=== PATIENT | female | born 1970 | race Caucasian/White ===

== ENCOUNTER 2017-05-04 16:52 | Emergency (ER) | payer BC ==
[~2017-05-04] VITALS: Ht 163.8 cm; Wt 67.4 kg
[2017-05-04 18:08] LABS: BASOPHILS # (AUTO) 0.02 x10^3/uL (0-0.1); BASOPHILS % (AUTO) 0 % (0-1); EOSINOPHILS # (AUTO) 0.06 x10^3/uL (0-0.4); EOSINOPHILS % (AUTO) 1 % (1-7); LYMPHOCYTES # (AUTO) 1.12 x10^3/uL (1-3.4); LYMPHOCYTES % (AUTO) 15 % (22-44); MD NO; MEAN CORPUSCULAR HEMOGLOBIN 25.1 pg (27.0-34.8); MEAN CORPUSCULAR HGB CONC 31.7 g/dL (32.4-35.8); MEAN CORPUSCULAR VOLUME 79.3 fL (80-100); MEAN PLATELET VOLUME 10.6 fL (7.4-10.4); MONOCYTES # (AUTO) 0.81 x10^3/uL (0.2-0.8); MONOCYTES % (AUTO) 11 % (2-9); NEUTROPHILS # (AUTO) 5.52 x10^3/uL (1.8-6.8); NEUTROPHILS % (AUTO) 73 % (42-75); PLATELET COUNT 223 x10^3/uL (130-400); RED BLOOD COUNT 4.47 x10^6/uL (3.82-5.3); RED CELL DISTRIBUTION WIDTH 16.7 % (9.6-15.2)
[2017-05-04 18:15] LABS: INTERNATIONAL NORMALIZED RATIO 1.03 (0.93-1.1); PROTHROMBIN TIME 10.7 Seconds (9.6-11.5)
[2017-05-04 18:18] LABS: ALBUMIN 3.8 g/dL (3.4-5.0); ANION GAP 7 mmol/L (5-15); CALCIUM 9.3 mg/dL (8.5-10.1); CHLORIDE 107 mmol/L (98-107); CREATININE 0.83 mg/dL (0.55-1.02)
[2017-05-04] MEDS ORDERED: PLEASE ENTER ALLERGIES MC SCH (18:30)
[2017-05-04] MEDS ORDERED: RIVAROXABAN 15 MG TABLET PO ONE (18:30)
[2017-05-04] MEDS ORDERED: SERT25TA3 PO (18:59)
[2017-05-04 19:44] VITALS: BP 127/59
== END 2017-05-04 19:46 | disposition home or self-care (01) ==
LOC: ED 19:04
DX: I82.412 Acute embolism and thrombosis of left femoral vein (principal); I82.432 Acute embolism and thrombosis of left popliteal vein; Z79.01 Long term (current) use of anticoagulants; Z86.718 Personal history of other venous thrombosis and embolism
CPT/HCPCS: 36415; 80048; 82040; 85025; 85610; 99285

== ENCOUNTER 2017-06-16 11:58 | Observation (INO) | payer BC ==
[~2017-06-16] VITALS: Ht 165.1 cm; Wt 67.1 kg
[~2017-06-16 11:58] MED LIST: CEFAZOLIN 1,000 MG ONE; DEXAMETHASONE 4 MG/ML, 1ML ONE; MEDROXYPROGESTERONE ACETATE 5 MG TABLET PO ONE; ONDANSETRON 2MG/ML, 2ML ONE; PROPOFOL 10 MG/ML, 20ML ONE; SERT25TA3 PO
[2017-06-16 13:03] VITALS: BP 116/73
[2017-06-16 13:16] LABS: BASOPHILS # (AUTO) 0.04 x10^3/uL (0-0.1); BASOPHILS % (AUTO) 1 % (0-1); EOSINOPHILS # (AUTO) 0.04 x10^3/uL (0-0.4); EOSINOPHILS % (AUTO) 1 % (1-7); LYMPHOCYTES # (AUTO) 1.14 x10^3/uL (1-3.4); LYMPHOCYTES % (AUTO) 23 % (22-44); MD NO; MEAN CORPUSCULAR HEMOGLOBIN 25.5 pg (27.0-34.8); MEAN CORPUSCULAR HGB CONC 32.2 g/dL (32.4-35.8); MEAN CORPUSCULAR VOLUME 79.1 fL (80-100); MEAN PLATELET VOLUME 10.4 fL (7.4-10.4); MONOCYTES # (AUTO) 0.36 x10^3/uL (0.2-0.8); MONOCYTES % (AUTO) 7 % (2-9); NEUTROPHILS # (AUTO) 3.35 x10^3/uL (1.8-6.8); NEUTROPHILS % (AUTO) 68 % (42-75); PLATELET COUNT 225 x10^3/uL (130-400); RED BLOOD COUNT 3.41 x10^6/uL (3.82-5.3); RED CELL DISTRIBUTION WIDTH 20.6 % (9.6-15.2)
[2017-06-16] MEDS ORDERED: iron PO (13:21)
[2017-06-16] MEDS ORDERED: RIVA20TA PO (13:21)
[2017-06-16 13:29] LABS: ALBUMIN 3.7 g/dL (3.4-5.0); ANION GAP 8 mmol/L (5-15); CHLORIDE 109 mmol/L (98-107)
[2017-06-16 13:36] LABS: INTERNATIONAL NORMALIZED RATIO 1.09 (0.93-1.1); PROTHROMBIN TIME 11.2 Seconds (9.6-11.5)
[2017-06-16] MEDS ORDERED: MEDROXYPROGESTERONE ACETATE 2.5 MG TABLET PO ONE (14:00)
[2017-06-16] MEDS ORDERED: MIDAZOLAM 1 MG/ML, 2ML ONE (16:02)
[2017-06-16] MEDS ORDERED: FENTANYL PF 100 MCG/2ML ONE (16:02)
[2017-06-16] MEDS ORDERED: SILVER NITRATE STICK TP ONE (16:18)
[2017-06-16] MEDS ORDERED: ACETAMINOPHEN 325 MG TABLET PO PRN (16:30)
[2017-06-16] MEDS ORDERED: OXYcodone 5 MG/5 ML ORAL.SOL UDC PO PRN (16:30)
[2017-06-16] MEDS ORDERED: FENTANYL PF 100 MCG/2ML IV PRN (16:30)
[2017-06-16] MEDS ORDERED: HYDROmorphone 1 MG/ML, 1ML IV PRN (16:30)
[2017-06-16] MEDS ORDERED: ONDANSETRON 2MG/ML, 2ML IVPush PRN (16:30)
[2017-06-16] MEDS ORDERED: ACETAMINOPHEN 325 MG TABLET ONE (16:41)
== END 2017-06-16 18:25 | disposition home or self-care (01) ==
LOC: ED 13:16 → EDIP 15:12 → UNDOADMIN 15:12 → EDIP 16:00 → UNDODISIN 06-17 17:20
PROVIDERS: ADMIT Obstetrics & Gynecology; ATTEND Obstetrics & Gynecology
DX: N92.0 Excessive and frequent menstruation with regular cycle (principal); D64.9 Anemia, unspecified; N85.8 Other specified noninflammatory disorders of uterus; D25.9 Leiomyoma of uterus, unspecified; Z79.01 Long term (current) use of anticoagulants; Z98.890 Other specified postprocedural states; I82.409 Acute embolism and thrombosis of unspecified deep veins of unspecified lower extremity
CPT/HCPCS: 36415; 58120; 76830; 80048; 82040; 84703; 85025; 85610; 85730; 86850; 86900; 88305; 99285; G0378; J0690; J1100; J2250; J2405; J2704; J3010

== ENCOUNTER 2017-07-02 08:36 | Day surgery (SDC) | payer BC ==
[~2017-07-02] VITALS: Ht 165.1 cm; Wt 66.0 kg
[~2017-07-02 08:36] MED LIST changes: -CEFAZOLIN 1,000 MG ONE; -DEXAMETHASONE 4 MG/ML, 1ML ONE; +IRON1TAB2 PO; -MEDROXYPROGESTERONE ACETATE 5 MG TABLET PO ONE; +NORE5TAB PO; -ONDANSETRON 2MG/ML, 2ML ONE; -PROPOFOL 10 MG/ML, 20ML ONE; +RIVA20TA PO; +SERT50TA5 PO; +iron PO
[2017-07-02] MEDS ORDERED: LACTATED RINGERS 1,000 ML IV SCH (08:52)
[2017-07-02 09:39] VITALS: BP 114/71
[2017-07-02] MEDS ORDERED: MIDAZOLAM 1 MG/ML, 2ML ONE (10:02)
[2017-07-02] MEDS ORDERED: FENTANYL PF 100 MCG/2ML ONE (10:02)
[2017-07-02] MEDS ORDERED: LIDOCAINE-MPF 2% ,5ML ONE (10:03)
[2017-07-02] MEDS ORDERED: ONDANSETRON 2MG/ML, 2ML ONE ×2 (10:03)
[2017-07-02] MEDS ORDERED: PROPOFOL 10 MG/ML, 20ML ONE (10:03)
[2017-07-02] MEDS ORDERED: DEXAMETHASONE 4 MG/ML, 1ML ONE ×2 (10:03)
[2017-07-02] MEDS ORDERED: KETOROLAC 30 MG/1 ML ONE (10:04)
[2017-07-02 10:11] LABS: HCG UR SG 1.024 (1.003-1.030)
[2017-07-02] MEDS ORDERED: SILVER NITRATE STICK TP ONE (10:29)
[2017-07-02] MEDS ORDERED: BUPIVACAINE/PF 0.25% ONE (10:29)
[2017-07-02] MEDS ORDERED: EPINEPHRINE 1 MG/ML, 1ML ONE (10:29)
[2017-07-02] MEDS ORDERED: CEFAZOLIN 1,000 MG ONE ×2 (10:58)
[2017-07-02] MEDS ORDERED: KETAMINE 10 MG/ML, 20ML ONE (11:22)
[2017-07-02] MEDS ORDERED: MEPERIDINE/PF 25MG/0.5ML IVPush PRN (11:30)
[2017-07-02] MEDS ORDERED: PROMETHAZINE 12.5 MG SUPP PR PRN (11:30)
[2017-07-02] MEDS ORDERED: ONDANSETRON 2MG/ML, 2ML IVPush PRN (11:30)
[2017-07-02] MEDS ORDERED: LABETALOL 5MG/ML, 20ML IV PRN (11:30)
[2017-07-02] MEDS ORDERED: HYDROmorphone 1 MG/ML, 1ML IV PRN (11:30)
[2017-07-02] MEDS ORDERED: OXYcodone 5 MG/5 ML ORAL.SOL UDC PO PRN (11:30)
[2017-07-02] MEDS ORDERED: PROMETHAZINE 25 MG/ML, 1ML IV PRN (11:30)
[2017-07-02] MEDS ORDERED: FENTANYL PF 100 MCG/2ML IV PRN (11:30)
[2017-07-02] MEDS ORDERED: hydrALAzine 20 MG/ML, 1ML IV PRN (11:30)
== END 2017-07-02 13:15 ==
LOC: OUT 08:36
PROVIDERS: ATTEND Obstetrics & Gynecology
DX: D25.0 Submucous leiomyoma of uterus (principal); N92.0 Excessive and frequent menstruation with regular cycle; D64.89 Other specified anemias; Z86.718 Personal history of other venous thrombosis and embolism; Z80.3 Family history of malignant neoplasm of breast; Z79.899 Other long term (current) drug therapy; Z98.890 Other specified postprocedural states
CPT/HCPCS: 36415; 58563; 81025; 86850; 86900; J0171; J0690; J1100; J1885; J2250; J2405; J2704; J3010; J3490; J7120

== ENCOUNTER 2018-12-06 07:48 | Outpatient (CLI) | payer BC | END 2018-12-06 23:59 | disposition home or self-care (01) | LOC: CFH 07:48 | PROVIDERS: ATTEND Obstetrics & Gynecology | DX: Z12.31 Encounter for screening mammogram for malignant neoplasm of breast (principal) | CPT/HCPCS: 77063; 77067 ==

== ENCOUNTER → 2019-12-16 | Outpatient (CLI) | payer BC ==
[~2019-12-16] MED LIST changes: +SERT50TA28 PO; -SERT50TA5 PO
== END | disposition home or self-care (01) ==
LOC: CFH 14:57
PROVIDERS: ATTEND Obstetrics & Gynecology
DX: Z12.31 Encounter for screening mammogram for malignant neoplasm of breast (principal)
CPT/HCPCS: 77063; 77067